=== PATIENT | female | born 1990 | race Hispanic/Latino ===

== ENCOUNTER 2017-08-20 19:07 | Emergency (ER) | payer MEDICAID ==
--- NOTE | 2017-08-20 19:51 | C.PDOC ---
History Of Present Illness Patient complains of flu like symptoms starting this morning. She complains of fever 101F, headache, nasal congestion, sore throat, malaise, nausea, generalized bodyaches. Denies vomiting, diarrhea, constipation, dyuria, abdominal pain. Time Seen by Provider: 08/20/17 19:30 Chief Complaint (Nursing): Flu-like Symptoms History Per: Patient History/Exam Limitations: no limitations Onset/Duration Of Symptoms: Hrs Current Symptoms Are (Timing): Still Present Location Of Pain: None Associated Symptoms: Chills, Sore Throat, Myalgias, Nasal Congestion Past Medical History Reviewed: Historical Data, Nursing Documentation, Vital Signs - Medical History PMH: Asthma Surgical History: No Surg Hx Family History: States: Unknown Family Hx Review Of Systems Except As Marked, All Systems Reviewed And Found Negative. Constitutional: Positive for: Fever, Malaise Eyes: Negative for: Vision Change, Redness ENT: Positive for: Nose Congestion, Throat Pain. Negative for: Ear Pain Cardiovascular: Negative for: Chest Pain, Palpitations Respiratory: Negative for: Cough, Shortness of Breath Gastrointestinal: Negative for: Vomiting, Abdominal Pain, Diarrhea Genitourinary: Negative for: Dysuria Skin: Negative for: Rash Neurological: Positive for: Headache. Negative for: Dizziness Physical Exam - Physical Exam Appears: Non-toxic, No Acute Distress Skin: Warm, Dry, No Rash Head: Atraumatic, Normacephalic Eye(s): bilateral: Normal Inspection, EOMI Ear(s): Bilateral: Normal (no erythema) Nose: Normal Oral Mucosa: Moist Throat: Normal, No Erythema, No Exudate, No Drooling, No Mass Neck: Normal ROM Chest: Symmetrical Cardiovascular: Rhythm Regular, No Murmur Respiratory: Normal Breath Sounds, No Accessory Muscle Use, No Rales, No Rhonchi , No Wheezing Gastrointestinal/Abdominal: Bowel Sounds, Soft, No Tenderness, No Guarding Extremity: Bilateral: Atraumatic, Normal ROM Neurological/Psych: Oriented x3, Normal Speech Medical Decision Making Medical Decision Making: Patient with fever and flu like symptoms Plan: Tylenol and Flu test Flu test was negative. On re-eval patient seated comfortably in no distress. Recommend Tylenol or Motrin alternating every 4-6 hours for Fever 100.4F or higher. Rest and drink plenty of fluids. Instruct to follow up with primary doctor for further evaluation in 2-4 days. Disposition Counseled Patient/Family Regarding: Diagnosis, Need For Followup, Rx Given - Disposition Referrals: [facility] [Outside] [facility] [Outside] Disposition: HOME/ ROUTINE Disposition Time: 20:20 Condition: STABLE Additional Instructions: You have viral upper respiratory infection. Take Tylenol or Motrin alternating every 4-6 hours for Fever 100.4F or higher. Rest and drink plenty of fluids. May use cool mist humidifier or vaporizer in room. Follow up with your primary medical doctor or clinic in 1 week for further evaluation. Prescriptions: Brompheniramine/Pseudoephed/Dm [Bromfed Dm Cough 118 ml] 10 ml PO Q8 PRN #4 oz PRN Reason: Cough And Congestion Fluticasone Propionate [Flonase] 1 spray NS DAILY #1 bottle Ibuprofen [Motrin] 600 mg PO Q8 #30 tab Mv-Min/Vit C/Glut/Lysine/Hc124 [Airborne Tablet Chewable] 1 each PO DAILY #60 tab.chew Instructions: Upper Respiratory Infection (ED) Forms: [facility] (Belarusian), Work Excuse - POA Present On Arrival: None - Clinical Impression Clinical Impression: Influenza-like illness
[2017-08-20 20:31] VITALS: RESP 18
[2017-08-20 20:39] VITALS: BP 100/67; TEMP 98.8; O2SAT 98
[2017-08-20 20:40] VITALS: PULSE 111
== END 2017-08-20 20:58 | disposition home or self-care (01) ==
LOC: C.ER 19:07
DX: J11.1 Influenza due to unidentified influenza virus with other respiratory manifestations (principal)

== ENCOUNTER 2018-02-09 21:21 | Emergency (ER) | payer MEDICAID ==
[2018-02-09 21:57] VITALS: BP 111/75; PULSE 93; RESP 18; TEMP 98.5; O2SAT 100
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
== END 2018-02-09 23:22 | disposition home or self-care (01) ==
LOC: C.ER 21:21
DX: T14.8XXA Other injury of unspecified body region, initial encounter (principal); S50.811A Abrasion of right forearm, initial encounter; S50.312A Abrasion of left elbow, initial encounter; S30.810A Abrasion of lower back and pelvis, initial encounter; W05.1XXA Fall from non-moving nonmotorized scooter, initial encounter